=== PATIENT | female | born 1995 | race Caucasian/White ===

== ENCOUNTER 2019-12-15 14:03 | Emergency (ER) | payer MEDICAID, SELFPAY ==
[2019-12-15 14:05] VITALS: BMI 25.0
--- NOTE | 2019-12-15 14:06 | ED_ITS ---
Entered by Dashawn Garcia, acting as scribe for Gordo Oseguera DO HPI - General Adult General: Chief complaint: Vaginal Bleeding Stated complaint: heavy bleeding Time Seen by Provider: 12/15/19 14:13 History of Present Illness: HPI narrative: 24 yo female presents with heavy bleeding. Pt states that she is , she has had multiple positive tests. Pt states that she has had bleeding off and on. She is not exactly sure how far along she is. She states she is had intermittent periods since August of last year. MD complaint: heavy bleeding. Onset (ago): day(s) Radiation: non-radiation Severity: mild Pain Consistency: intermittent Associated symptoms: Reports no associated symptoms; Deny chest pain, dyspnea, malaise, nausea, rash or vomiting Review of Systems Const: Denies: fever, chills, body aches, change in appetite, fatigue or malaise ENMT: Denies: throat pain, ear pain, nasal discharge or nasal congestion Card: Denies: chest pain, edema, shortness of breath on exertion or shortness of breath when lying down Resp: Denies: shortness of breath, productive cough or non-productive cough GI: Denies: abdominal pain, nausea, vomiting, vomiting blood, coffee grounds in vomit, diarrhea, constipation, bloating, blood in stool or black tarry stool : Reports: vaginal bleeding; Denies: flank pain, difficulty urinating, painful urination, urinary frequency, urinary urgency or pelvic pain Skin/Breast: Denies: rash or itching PFS ED PFSH: Medical History (Updated 12/15/19 @ 16:04 by Gordo Oseguera DO) Heart murmur Social History Smoking and tobacco status: current every day smoker Physical Exam Const: COMMON NORMALS: no apparent distress GENERAL APPEARANCE: cooperative and comfortable ORIENTATION/CONSCIOUSNESS: Yes awake, Yes oriented to person, Yes oriented to place and Yes oriented to time HENMT: COMMON NORMALS: normocephalic, head/scalp atraumatic and hearing grossly normal bilaterally HEAD & SCALP: normocephalic and atraumatic Eye: COMMON NORMALS: conjunctivae normal and no scleral icterus CONJUNCTIVA: Yes conjunctivae normal Neck/C-Spine: COMMON NORMALS: full ROM, no lymphadenopathy, supple and no JVD Lymph: LYMPHATIC: no lymphadenopathy noted and no lymphedema noted Resp: COMMON NORMALS: normal respiratory effort, no retractions, no use of accessory muscles and clear to auscultation bilaterally AUSCULTATION: clear to auscultation bilaterally Cardio: COMMON NORMALS: no JVD, regular rate, regular rhythm and no murmurs RATE: regular rate RHYTHM: regular rhythm GI: COMMON NORMALS: soft to palpation and no hepatosplenomegaly AUSCULTATI ON: Yes normoactive bowel sounds PALPATION: Yes soft, No tender, No guarding and Yes no hepatosplenomegaly Extremity: COMMON NORMALS: normal to inspection, normal capillary refill, no clubbing, cyanosis or edema, no calf tenderness and no pedal edema Neuro: SENSORIUM/ORIENTATION: Yes oriented to person, Yes oriented to place and Yes oriented to time Skin: COMMON NORMALS: no rashes or lesions noted GENERAL SKIN EXAM: no rashes or lesions noted Course ED course: Patient reports she has discussed with Dr. Cazares her usual doctor and recently had vaginal swabs done she is not had any vaginal discharge says the bleeding is for the most part stopped now. Bedside ultrasound confirms intrauterine with visualized heart movements. Reviewed this with the patient. Did appear she has a subchorionic hematoma however she will need a formal ultrasound to confirm that. I would recommend that she follow-up with Dr. Cazares to get a formal full OB ultrasound at his discretion. Her biggest concern today was confirmed intrauterine and viability of the . Also reviewed with her her other labs and her beta-hCG. Vital Signs: Vital signs: Vital Signs Temperature 97.6 F 12/15/19 14:15 Pulse Rate 88 12/15/19 16:23 Respiratory Rate 18 12/15/19 16:23 Blood Pressure 126/86 12/15/19 16:23 Pulse Oximetry 98 12/15/19 16:23 MDM - General Adult Lab Data: Labs: Lab Results 12/15/19 12/15/19 12/15/19 Range/Units 14:23 14:23 14:23 WBC 11.9 H (4.0-10.0) 10^3/ uL RBC 4.68 (4.1-5.3) 10^6/u L Hgb 13.5 (11.5-15.3) g/dL Hct 40.9 (37.0-47.0) % MCV 87.4 (81-99) fL MCH 28.8 (28.0-34.0) pg MCHC 33.0 (30.0-36.0) g/dL RDW 13.6 (12.1-15.1) % Plt Count 257 (130-400) 10^3/c mm MPV 10.8 H (7.4-10.4) fL Neut % (Auto) 80.8 % Lymph % (Auto) 13.4 % [place] % (Auto) 5.0 % Eos % (Auto) 0.3 % Baso % (Auto) 0.2 % Neut # (Auto) 9.6 H (1.8-7.7) 10^3/u L Lymph # (Auto) 1.6 (0.8-4.8) 10^3/u L [place] # (Auto) 0.6 (0.2-0.9) 10^3/u L Eos # (Auto) 0.0 (0.0-0.8) 10^3/u L Baso # (Auto) 0.0 (0.0-0.1) 10^3/u L Nucleated RBC % (a uto) 0 % Nucleated RBCs # 0.0 /100WBC Sodium 134 L (136-145) mmol/L Potassium 3.4 L (3.5-5.1) mmol/L Chloride 99 (98-107) mmol/L Carbon Dioxide 21 L (22-29) mmol/L Anion Gap 17.4 (5-19) BUN 5 L (6-20) mg/dL Creatinine 0.5 (0.5-0.9) mg/dL GFR Calculation 154.3 H (90-130) mL/min Glucose 83 (65-115) mg/dL Calculated Osmolal ity 273 L (285-295) mOsm/k g Calcium 9.3 (8.5-10.5) mg/dL Ser , [place] [address]381.00 mIU/mL Urine Color (Yellow) Urine Appearance (CLEAR) Urine pH (5-7) Ur Specific Gravit y (1.005-1.030) Urine Protein (Negative) Urine Glucose (UA) (Normal) Urine Ketones (Negative) Urine Blood (Negative) Urine Nitrate (Negative) Urine Bilirubin (NEGATIVE) Urine Urobilinogen (Negative) mg/dL Ur Leukocyte Umu ase (Negative) Blood Type A Positive Rho(D) Type Positive 12/15/19 Range/Units 15:52 WBC (4.0-10.0) 10^3/ uL RBC (4.1-5.3) 10^6/u L Hgb (11.5-15.3) g/dL Hct (37.0-47.0) % MCV (81-99) fL MCH (28.0-34.0) pg MCHC (30.0-36.0) g/dL RDW (12.1-15.1) % Plt Count (130-400) 10^3/c mm MPV (7.4-10.4) fL Neut % (Auto) % Lymph % (Auto) % [place] % (Auto) % Eos % (Auto) % Baso % (Auto) % Neut # (Auto) (1.8-7.7) 10^3/u L Lymph # (Auto) (0.8-4.8) 10^3/u L [place] # (Auto) (0.2-0.9) 10^3/u L Eos # (Auto) (0.0-0.8) 10^3/u L Baso # (Auto) (0.0-0.1) 10^3/u L Nucleated RBC % (a uto) % Nucleated RBCs # /100WBC Sodium (136-145) mmol/L Potassium (3.5-5.1) mmol/L Chloride (98-107) mmol/L Carbon Dioxide (22-29) mmol/L Anion Gap (5-19) BUN (6-20) mg/dL Creatinine (0.5-0.9) mg/dL GFR Calculation (90-130) mL/min Glucose (65-115) mg/dL Calculated Osmolal ity (285-295) mOsm/k g Calcium (8.5-10.5) mg/dL Ser , Jaun i-Qnt mIU/mL Urine Color Yellow (Yellow) Urine Appearance Clear (CLEAR) Urine pH 6.0 (5-7) Ur Specific Gravit y 1.010 (1.005-1.030) Urine Protein Neg (Negative) Urine Glucose (UA) Norm (Normal) Urine Ketones 1+ H (Negative) Urine Blood Neg (Negative) Urine Nitrate Negative (Negative) Urine Bilirubin Neg (NEGATIVE) Urine Urobilinogen Norm (Negative) mg/dL Ur Leukocyte Umu ase Negative (Negative) Blood Type Rho(D) Type Discharge Plan Discharge Patient Disposition: Home, Self-Care Clinical Impression: Vaginal bleeding, Intrauterine Condition: Stable Prescriptions: No Action 1 tab PO EVERY OTHER DAY RF: 0 Discharge Orders: Discharge Order (Routine); Ordered 12/15/19 Ordered By: Gordo Oseguera Referrals: Vince Cazares MD [Primary Care Provider] - Discharge Diet: Usual diet Discharge Activity: Limit activity as instructed Activity Restrictions/Additional Instructions: Follow-up with Dr. Cazares next week. Discharge Date/Time: 12/15/19 16:24 Coding Level of Care Code ED On Awake Counselor for Chg Fwd Exam Comprehensive The documentation recorded by the Jose jennings Kialy, accurately reflects the service I personally performed and the decisions made by Ana Rosa barber Curtis L, DO Dec 15, 2019 14:03
[2019-12-15 14:15] VITALS: BP 132/90; PULSE 101; RESP 18; TEMP 36.4; O2SAT 96
[2019-12-15 14:38] LABS: Basophils % 0.2 %; Eosinophils % 0.3 %; Hematocrit 40.9 % (37.0-47.0); Hemoglobin 13.5 g/dL (11.5-15.3); Lymphocytes # 1.6 10^3/uL (0.8-4.8); Lymphocytes % 13.4 %; Mean Corpuscular Hemoglobin 28.8 pg (28.0-34.0); Mean Corpuscular Volume 87.4 fL (81-99); Mean Platelet Volume 10.8 fL (7.4-10.4); Monocytes # 0.6 10^3/uL (0.2-0.9); Neutrophils # 9.6 10^3/uL (1.8-7.7); Neutrophils % 80.8 %; Nucleated Red Blood Cells % 0 %; Platelet Count 257 10^3/cmm (130-400); Red Blood Count 4.68 10^6/uL (4.1-5.3); Red Cell Distribution Width 13.6 % (12.1-15.1); White Blood Count 11.9 10^3/uL (4.0-10.0)
[2019-12-15 15:18] LABS: Anion Gap 17.4 (5-19); Blood Urea Nitrogen 5 mg/dL (6-20); Calcium 9.3 mg/dL (8.5-10.5); Carbon Dioxide 21 mmol/L (22-29); Chloride 99 mmol/L (98-107); Glomerular Filtration Rate 154.3 mL/min (90-130); Glucose 83 mg/dL (65-115); Osmolality Calculated 273 mOsm/kg (285-295); Potassium 3.4 mmol/L (3.5-5.1); Sodium 134 mmol/L (136-145)
[2019-12-15 15:58] LABS: Add Urine Microscopic? NO
[2019-12-15 15:59] LABS: Bilirubin Urine Neg (NEGATIVE); Blood Urine Neg (Negative); Glucose Urine UA Norm (Normal); Ketones Urine 1+ (Negative); Leukocyte Esterase Urine Negative (Negative); Nitrate Urine Negative (Negative); Protein Urine Neg (Negative); Urine Appearance Clear (CLEAR); Urine Color Yellow (Yellow); Urobilinogen Urine Norm (Negative)
[2019-12-15 16:23] VITALS: BP 126/86; PULSE 88; RESP 18; O2SAT 98
== END 2019-12-15 16:24 | disposition home or self-care (01) ==
PROVIDERS: Emergency Provider Family Medicine; Family Provider Family Medicine; PCP Family Medicine
DX: O46.90 Antepartum hemorrhage, unspecified, unspecified trimester (principal); O99.330 Smoking (tobacco) complicating pregnancy, unspecified trimester; F17.200 Nicotine dependence, unspecified, uncomplicated
CPT/HCPCS: 12345; 36415; 80048; 81003; 84702; 85025; 86900; 99282; 99283

== ENCOUNTER 2020-06-02 05:03 | Inpatient (IN) | payer MEDICAID, SELFPAY ==
--- NOTE | 2020-05-27 10:53 | ANES.PREANE2 ---
Pre-Anesthetic Assessment Pre-Anesthetic Assessment: Height/Weight: Height 1.68 m Proposed Procedure: Operation Date: 06/02/20 07:00 Proposed Procedures p Section Repeat(Not Applicable) - Vince Cazares MD Familial anesthetic complications: PONV Exam: Pre-Anes Outpt Exam: alert, oriented x 3, clear to auscultation bilaterally and regular rate & rhythm Airway: Cervical ROM: WNL MP: 2 Dentition: Full GI: GI: GERD Musc/skel: Musc/skel: Lower Back Pain (since last - she jumped during needle placement and it has had a band of lower back pain since this (dull pressure)) Anesthetic Plan: ASA status: 1 Anesthesia: Regional (specify below) (spinal) Risk of > 500 ml blood loss (7ml/kg in children): Yes, adequate IV access and fluids planned PFSH Anesthesia PFSH: Medical History (Updated 12/23/19 @ 00:01 by ) Heart murmur Social History Smoking and tobacco status: current every day smoker Data Anesthesia Cardiac Studies: No Data to Display
[2020-06-02] VITALS (25 sets, daily range): BP systolic 102–139; BP diastolic 53–83; PULSE 60–107; RESP 14–18; TEMP 36.4–36.8; O2SAT 95–99; BMI 33.4
[2020-06-02 05:53] LABS: Basophils % 0.2 %; Eosinophils # 0.1 10^3/uL (0.0-0.8); Eosinophils % 0.6 %; Hematocrit 36.6 % (37.0-47.0); Hemoglobin 11.9 g/dL (11.5-15.3); Lymphocytes # 2.1 10^3/uL (0.8-4.8); Lymphocytes % 19.3 %; Mean Corpuscular HGB Conc 32.5 g/dL (30.0-36.0); Mean Corpuscular Hemoglobin 28.5 pg (28.0-34.0); Mean Corpuscular Volume 87.8 fL (81-99); Mean Platelet Volume 11.2 fL (7.4-10.4); Monocytes # 0.9 10^3/uL (0.2-0.9); Monocytes % 8.5 %; Neutrophils # 7.76 10^3/uL (1.8-7.7); Neutrophils % 71.1 %; Nucleated Red Blood Cells % 0 %; Platelet Count 209 10^3/cmm (130-400); Red Blood Count 4.17 10^6/uL (4.1-5.3); Red Cell Distribution Width 13.7 % (12.1-15.1); White Blood Count 10.9 10^3/uL (4.0-10.0)
[2020-06-02] MEDS: famotidine 20 mg/2 mL INJ IVP (06:40)
[2020-06-02] MEDS: metoclopramide 5 mg/mL SDV 2 mL 10 MG IVP (06:40)
[2020-06-02] MEDS: citric acid-sodium citrate 30 mL UDC PO (06:41)
[2020-06-02] MEDS: lactated ringers 1,000 ML 999 ML IV (06:48)
--- NOTE | 2020-06-02 06:51 | PM.OBGYHP ---
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 We discussed the risks of bleeding, infection, and damage intra-abdominal organs are associated with a . Especially in her case where she has had multiple previous C-sections with probable adhesions. Her has been unremarkable. There have been no concerns or complications. At one point she did want to have a tubal ligation performed, but she has changed her mind since that time. We discussed the pros and cons of getting a tubal ligation again this morning. Present Details : 4 Para: 3 Labs Rubella: Immune RPR: Negative GBS: Negative Review of Systems General: Reports: 10 or more systems reviewed and unremarkable except in HPI and below Const: Denies: fever(s) Card: Denies: chest pain or irregular heart rhythm Resp: Denies: dyspnea Medications/Allergies Home Medications Medication Instructions Recorded Confirmed Last Taken Type 1 tab PO EVERY OTHER DAY 12/15/19 12/15/19 06/02/20 02:00 History hydrocodone-acetaminophen 1 tab PO Q4H PRN #28 tab 06/03/20 Unknown Rx ibuprofen 800 mg PO TID #30 tab 06/03/20 Unknown Rx Allergies Allergy/AdvReac Type Severity Reaction Status Date / Time No Known Allergies Allergy Verified 06/02/20 06:18 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: Medical History (Updated 06/02/20 @ 06:54 by Vince Cazares MD) Heart murmur Social History Smoking and tobacco status: current every day smoker Vitals/I&O/Wt Last Vital Signs Temp 97.7 F 06/02/20 05:15 Pulse 107 H 06/02/20 05:22 BP 139/83 06/02/20 05:22 Weight last 48 hrs Weight 207 lb Physical Exam Const: COMMON NORMALS: patient oriented x3 and alert HENMT: COMMON NORMALS: moist oral mucous membranes HEAD & SCALP: normal to inspection Chest: COMMONS NORMALS: normal inspection of the chest Resp: COMMON NORMALS: clear to auscultation bilaterally AUSCULTATION: clear to auscultation bilaterally Cardio: COMMON NORMALS: regular rate and regular rhythm RATE: regular rate RHYTHM: regular rhythm GI: INSPECTION: Yes normal to inspection and Yes other (Gravid) Extremity: COMMON NORMALS: normal to inspection GENERAL: Yes edema (Trace) Neuro: COMMON NORMALS: patient oriented x3, moves all extremities and no sensory deficits noted SENSORIUM/ORIENTATION: Yes alert Psych: COMMON NORMALS: mental status grossly normal Skin: COMMON NORMALS: no rashes or lesions noted GENERAL SKIN EXAM: no rashes or lesions noted Data : 06/02/20 20:45 A&P Assessment and plan (1) Previous section: Proceed with a scheduled repeat section. 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
--- NOTE | 2020-06-02 06:51 | ANES.PAUD2 ---
Pre-Anesthetic Update Pre-Anesthetic Assessment: Date of Surgery/Procedure: 06/02/20 Preop Diagnosis: repeat Proposed Procedure: Operation Date: 06/02/20 07:00 Proposed Procedures p Section Repeat(Not Applicable) - Vince Cazares MD Any changes to Pre-Anesthetic Assessment?: No Labs Last 48hrs: Laboratory Results - last 48 hr 06/02/20 05:35 WBC 10.9 H RBC 4.17 Hgb 11.9 Hct 36.6 L MCV 87.8 MCH 28.5 MCHC 32.5 RDW 13.7 Plt Count 209 MPV 11.2 H Neut % (Auto) 71.1 Lymph % (Auto) 19.3 [place] % (Auto) 8.5 Eos % (Auto) 0.6 Baso % (Auto) 0.2 Neut # (Auto) 7.76 H Lymph # (Auto) 2.1 [place] # (Auto) 0.9 Eos # (Auto) 0.1 Baso # (Auto) 0.0 Nucleated RBC % (a uto) 0 Nucleated RBCs # 0.0 Vitals: Temperature 97.7 F 06/02/20 05:15 Temperature Source Axillary 06/02/20 05:15 Pulse Rate 107 H 06/02/20 05:22 Pulse Rhythm 06/02/20 05:20 Pulse Strength 3+ Normal 06/02/20 05:20 Respiratory Effort Non-Labored 06/02/20 05:20 Respiratory Depth Normal 06/02/20 05:20 Respiratory Patter n 06/02/20 05:20 Blood Pressure 139/83 06/02/20 05:22 Blood Pressure Ara n 102 06/02/20 05:22 Oxygen Delivery Me thod 06/02/20 05:20 Exam: Pre-Anes Outpt Exam: alert, oriented x 3, clear to auscultation bilaterally and regular rate & rhythm Cardiac Studies: No Data to Display
--- NOTE | 2020-06-02 08:10 | ANE.PACU2 ---
Inpatient post-anesthesia follow up: Airway intact: Yes Vital signs: Temperature 97.7 F Pulse Rate 107 Respiratory Rate Blood Pressure 139/83 Pulse Oximetry Oxygen Delivery Me thod Room Air Oxygen Flow Rate Fraction of Inspir ed Oxygen Hydration adequate: Yes Nausea and vomiting: No Pain level: 1 Mental status: Baseline
--- NOTE | 2020-06-02 08:21 | P.OP_ITS ---
Operative Report Date of procedure: June 02, 2020 Pre-op Diagnosis: repeat Post-op diagnosis: same Procedure Done: Lower transverse section Specimens removed/disposition: 1. Female infant with a weight of 7 pounds 13 ounces and Apgars of 8 and 9 2. Placenta with three-vessel cord delivered intact Anesthesia: Epidural (Spinal) Estimated blood loss (mL): 300 Complications: None Condition: stable Disposition: floor (OB) Procedure: The patient was brought back to the operating room where she was prepped and draped in usual sterile fashion. Anesthesia was found to be adequat e. A lower transverse skin incision was then made with a #10 blade. I then dissected down to the underlying subcutaneous tissue until arriving at the prerectal fascia. The fascia was then nicked with the scalpel bilaterally. The fascial incisions were then carried laterally with Magaña scissors. Attention was then turned to the superior aspect of the incision which was grasped with kochers and tented up away from the underlying rectus abdominis muscles. The muscles were then dissected away from the fascia manually, and later with [place]aña scissors. Attention was then turned to the inferior aspect of the incision, and the fascia was dissected away from the underlying muscle in similar fashion. The rectus abdominis muscles were then spread manually. The peritoneum was entered manually. Excellent visualization of the uterus was noted. A lower transverse uterine incision was then made with a #10 blade. Upon arriving at the intrauterine cavity, the uterine incision was then extended manually. The infant was noted to be in vertex position. The baby was delivered without difficulty. After delivery of the head, the mouth and nose were suctioned at the site of the incision. There was no meconium. There was no nuchal cord. The remainder of the body was then delivered and placed on the abdomen. The cord was cut and clamped. The baby was then handed to the waiting nurse. The placenta was removed intact. The uterus was externalized. The intrauterine cavity was cleansed of any remaining debris. The uterine incision was reapproximated in 2 layers. The first layer was pe rformed with 0 Vicryl in a running locked stitch. The second layer was an imbricating stitch also using 0 Vicryl. The uterus was replaced into the abdomen. The peritoneum was then irrigated with warm saline. I reexamined the uterine incision and found it to be hemostatic. The rectus abdominis muscles were then reapproximated using 0 Vicryl in a running stitch. The fascia was then reapproximated using 0 Vicryl in running stitch. 0 Vicryl was then used to reapproximate the subcutaneous tissue the skin was reapproximated using celso. A sterile dressing was placed. All counts were correct x2. Both the mother and baby were in stable condition.
--- NOTE | 2020-06-02 09:11 | PC.NURSE ---
Patient moved up from PACU to PP room at this time
[2020-06-02] MEDS: ondansetron 2 mg/ML SDV 2 mL 4 MG IVP (09:17)
--- NOTE | 2020-06-02 10:06 | PC.NURSE ---
First dose of toradol given my anesthesia in recovery at 0800
[2020-06-02] MEDS: dextrose 5%-lactated ringers 1,000 ML 125 ML IV (11:14)
[2020-06-02] MEDS: ketorolac 30 mg/mL INJ IVP ×2 (14:05→21:50)
--- NOTE | 2020-06-02 15:49 | PC.RESP ---
SMOKING CESSATION INFORMATION SENT TO PATIENT.
[2020-06-02] MEDS: ferrous sulfate EC 325 mg Tablet PO (18:04)
[2020-06-02] MEDS: docusate sodium 100 mg Capsule PO (18:06)
--- NOTE | 2020-06-02 18:49 | PC.NURSE ---
Patient up to chair at this time, no complaints of dizziness, lightheadedness or nausea.
[2020-06-02 20:58] LABS: Hematocrit 34.2 % (37.0-47.0); Hemoglobin 10.7 g/dL (11.5-15.3); Mean Corpuscular HGB Conc 31.3 g/dL (30.0-36.0); Mean Corpuscular Hemoglobin 28.1 pg (28.0-34.0); Mean Corpuscular Volume 89.8 fL (81-99); Mean Platelet Volume 11.1 fL (7.4-10.4); Platelet Count 214 10^3/cmm (130-400); Red Blood Count 3.81 10^6/uL (4.1-5.3); Red Cell Distribution Width 13.8 % (12.1-15.1); White Blood Count 12.8 10^3/uL (4.0-10.0)
[2020-06-02] MEDS: HYDROcodone-acetaminophen 5-325 mg Tablet PO (22:32)
--- NOTE | 2020-06-03 07:22 | P.DS_ITS ---
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 The was unremarkable. She did have some problem with nausea before and after there is surgery that she felt was associated to the Bicitra that she took. Her course is also been unremarkable. She has breast-fed well. Her pain is been well controlled. Her diet will be advanced this morning. Her bleeding has been within normal limits. Information Peripartum Data: Infant Delivery Method: Section Physical Exam Narrative: EXAM NARRATIVE: She is in no acute distress Lungs are clear auscultation bilaterally Her heart has a regular rate and rhythm Her fundus is below the umbilicus and firm Her dressing is clean, dry and intact Her extremities have trace edema Urinary Catheter Management^: Garcia: Cath Placed During This Visit: yes, but has since been removed by the nurse Reason for Continuing Indwelling Catheter: Decision to DC Catheter Urinary Catheter Date of Insertion: 06/02/20 Urinary Catheter Time of Insertion: 07:10 Date Urinary Catheter Removed: 06/02/20 Time Urinary Catheter Discontinued: 22:00 Discharge Data Data Completed and Pending: Labs from last 24 hours 06/02/20 20:45 WBC 12.8 H RBC 3.81 L Hgb 10.7 L Hct 34.2 L MCV 89.8 MCH 28.1 MCHC 31.3 RDW 13.8 Plt Count 214 MPV 11.1 H Vitals: Last Vital Signs Temp 98.2 F 06/02/20 18:40 Pulse 61 06/02/20 22:30 Resp 16 06/02/20 22:30 BP 120/76 06/02/20 22:30 Pulse Ox 97 06/02/20 18:40 Discharge Plan Discharge Patient Disposition: Home Condition: Stable Prescriptions: New ibuprofen 800 mg Tablet 800 mg PO TID Qty: 30 RF: 0 hydrocodone-acetaminophen 5-325 mg Tablet 1 tab PO Q4H PRN (Reason: Moderate To Severe Pain) Qty: 28 RF: 0 Continued 1 tab PO EVERY OTHER DAY RF: 0 Discontinued Prilosec RF: 0 Discharge Orders: Discharge Order (Routine); Ordered 06/03/20 Ordered By: Vince Cazares Referrals: Vince Cazares MD [Primary Care Provider] - 4-7 days Discharge Diet: Usual diet Discharge Activity: Limit activity as instructed 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
[2020-06-03] MEDS: ferrous sulfate EC 325 mg Tablet PO (08:11)
[2020-06-03] MEDS: docusate sodium 100 mg Capsule PO (08:11)
[2020-06-03] MEDS: prenatal vitamin Capsule 1 CAP PO (08:11)
[2020-06-03] MEDS: lanolin oint 7 gm 1 APPLIC TOPICAL (08:11)
[2020-06-03 08:13] VITALS: BP 131/77; PULSE 61; RESP 14; TEMP 37.1; O2SAT 97
--- NOTE | 2020-06-03 08:34 | PC.NURSE ---
Prescription for motrin called into [facility] pharmacy in [place] at [phone]
[2020-06-03 10:05] VITALS: BP 118/75; PULSE 66; RESP 14; TEMP 37.1; O2SAT 96
--- NOTE | 2020-06-03 12:15 | ANE.PACU2 ---
Inpatient post-anesthesia follow up: Airway intact: Yes Vital signs: Temperature 98.7 F Pulse Rate 66 Respiratory Rate 14 Blood Pressure 118/75 Pulse Oximetry 96 Oxygen Delivery Me thod Room Air Oxygen Flow Rate Fraction of Inspir ed Oxygen Hydration adequate: Yes Nausea and vomiting: No Pain level: 1 Mental status: Baseline Additional Comments: no signs of infection at spinal site, no weakness, numbness, or headaches
[2020-06-03 14:30] VITALS: BP 120/71; PULSE 65; RESP 16; TEMP 36.7
[2020-06-03 14:39] VITALS: BP 120/71; PULSE 65; RESP 16; TEMP 36.7
== END 2020-06-03 15:16 | disposition home or self-care (01) | DRG 788 ==
PROVIDERS: Admitting Provider Family Medicine; PCP Family Medicine; Visit Provider Family Medicine
PROC: 10D00Z1 Extraction of Products of Conception, Low, Open Approach (ICD-10-PCS; CPT 59514; principal; 2020-06-02 07:00)
DX: O34.219 Maternal care for unspecified type scar from previous cesarean delivery (principal); Z3A.39 39 weeks gestation of pregnancy; Z37.0 Single live birth; O99.334 Smoking (tobacco) complicating childbirth; F17.210 Nicotine dependence, cigarettes, uncomplicated; R01.1 Cardiac murmur, unspecified; O75.89 Other specified complications of labor and delivery
CPT/HCPCS: 12345; 36415; 51702; 59025; 59409; 85025; 85027; 86900; 96375; J0690; J1885; J2274; J2405; J2765; J3490

== ENCOUNTER 2021-08-20 16:03 | Emergency (ER) | payer MEDICAID, SELFPAY ==
[2021-08-20 16:50] VITALS: BP 173/90; RESP 16; O2SAT 99; BMI 34.0
[2021-08-20 17:05] VITALS: TEMP 36.7
--- NOTE | 2021-08-20 17:09 | ECG_ITS ---
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 Measurements Intervals [place] Rate: 70 P: 14 GA: 136 QRS: -12 QRSD: 105 T: 20 QT: 396 QTc: 428 Interpretive Statements SINUS RHYTHM WITH SINUS ARRHYTHMIA No previous ECG available for comparison Electronically Signed On 08-20-2021 22:47:12 CUSTOMER CONSULTANT by Nicole Beckman M.D. [email or web address]
== END 2021-08-20 21:04 | disposition left against medical advice (07) ==
LOC: ER 16:16
PROVIDERS: Emergency Provider Emergency Medicine; PCP Family Medicine
DX: Z53.21 Procedure and treatment not carried out due to patient leaving prior to being seen by health care provider (principal)
CPT/HCPCS: 93005; 99282

== ENCOUNTER → 2024-03-01 15:13 | Outpatient (BNVA) | payer MEDICAID, SELFPAY | PROVIDERS: PCP Family Medicine; Visit Provider Orthopaedic Surgery | DX: M53.3 Sacrococcygeal disorders, not elsewhere classified (principal) | CPT/HCPCS: 72110 ==